=== PATIENT | female | born 1975 | race Asian ===

== ENCOUNTER 2017-03-13 17:50 | Emergency (ER) | payer BC ==
--- NOTE | ~2017-03-13 | EKG ---
PATIENT: TOAN KOCH UNIT #: [id number] Ventricular Rate: 90 BPM Atrial Rate: 90 BPM P-R Interval: 168 ms QRS Duration: 88 ms Q-T Interval: 390 ms QTC Calculation(Bezet): 477 ms P [place]: 57 degrees Calculated R [place]: -70 degrees Calculated T [place]: 53 degrees Diagnosis Line: Normal sinus rhythm Diagnosis Line: Left axis deviation Diagnosis Line: Low voltage QRS Diagnosis Line: Poor R wave progression questionable lead position Diagnosis Line: or body habitus Diagnosis Line: Abnormal ECG Diagnosis Line: No previous ECGs available Diagnosis Line: Confirmed by ISI MARTINES MD ([id number]) on Diagnosis Line: 03/13/2017 10:30:02 PM INTERPRETING MD: LISA
[2017-03-13 15:11] LABS: BASOPHIL% 0.2 % (0-2.5); EOSINOPHIL% 0.6 % (0.0-7.0); HEMATOCRIT 43.4 % (35.0-45.0); HEMOGLOBIN 14.3 gm/dL (12.0-16.0); LYMPHOCYTE# 2.2 X10e3 (1.0-3.5); LYMPHOCYTE% 25.3 % (17.0-45.0); MEAN CELL VOLUME 90.9 FL (83-96); MEAN CORPUSCULAR HGB CONC 33.1 g/dL (30-36); MEAN PLATELET VOLUME 8.6 FL (6.5-11.5); MONOCYTE# 0.8 X10e3 (0-1.0); MONOCYTE% 9.2 % (3.0-12.0); NEUTROPHIL# 5.6 X10e3 (1.5-7.1); NEUTROPHIL% 64.7 % (40-75); PLATELET COUNT 237 X10e3 (140-420); RED BLOOD COUNT 4.77 X10e (3.90-5.30); RED CELL DISTRIBUTION WIDTH 12.5 % (11.0-15.5); WHITE BLOOD COUNT 8.7 X10e3 (4.0-10.5)
[2017-03-13 15:15] LABS: DIFF IND NO
[2017-03-13 15:43] LABS: ALBUMIN SERUM 4.5 g/dL (3.5-5.0); BILIRUBIN, DIRECT 0.1 mg/dL (0.0-0.2); BILIRUBIN,INDIRECT 0.8 mg/dL (0.0-0.9); BILIRUBIN,TOTAL 0.9 mg/dL (0.2-2.0); CALCIUM SERUM 8.9 mg/dL (8.4-10.2); CREATININE SERUM 0.4 mg/dL (0.6-1.4); GLOM FILT RATE Estimated 127.6 mL/min (>60); POTASSIUM 3.6 mmol/L (3.5-5.1); PROTEIN TOTAL SERUM 7.8 g/dL (6.0-8.3)
[2017-03-13 16:44] LABS: URINE SOURCE CLEAN CATCH
[2017-03-13 16:51] LABS: URINE APPEARANCE CLEAR; URINE BILIRUBIN NEG (NEG); URINE BLOOD 1+ (NEG); URINE COLOR YELLOW; URINE GLUCOSE NEG (NEG); URINE KETONE NEG (NEG); URINE LEUKOCYTE ESTERASE 3+ (NEG); URINE NITRATE NEG (NEG); URINE PH 6.5 (5-8); URINE PROTEIN NEG (NEG); URINE SPECIFIC GRAVITY 1.006 (1.003-1.035); URINE UROBILINOGEN 0.2 MG/DL (NEG)
[2017-03-13 16:53] LABS: CULTURE INDICATED? YES; URINE BACTERIA AUWI 3+ (NEGATIVE); URINE SQUAMOUS EPITHELIAL CELL NONE SEEN /[HPF]; UWBCS1 AUWI 25-50 (0-5)
[~2017-03-13 17:50] MED LIST: KETOPROFEN PO; MEDROL DOSEPAK4 MG PO; MOBIC15 MG PO; PHENERGAN25 M1 PO; PHENERGAN25 MG PO; PLAQUENIL200 MG PO; PREDNISONE PO; PRILOSEC40 MG PO; TRAMADOL HCL50 M2 PO
== END 2017-03-13 18:00 | disposition left against medical advice (07) ==
LOC: CED 17:50
PROVIDERS: Emergency Medicine
DX: Z53.21 Procedure and treatment not carried out due to patient leaving prior to being seen by health care provider (principal)
CPT/HCPCS: 80048; 80076; 81003; 84703; 85025; 87086; 87088; 87186; 93005

== ENCOUNTER 2017-03-14 14:58 | Emergency (ER) | payer BC ==
--- NOTE | ~2017-03-14 | CR58 ---
[facility] A Service of [facility] & [facility] RADIOLOGY TEXT RESULTS PATIENT: TOAN KOCH LOCATION: [place] : 71 UNIT #: [id number] AGE: [address]: Kathrin Whatley APRN SEX: F ORDER DR: [id number] [facility] [address] [place], [place] [address] [id number] E MR#: [id number] Acc #: [id number] NAME: TOAN KOCH : 1975 SEX: F STUDY DATE/TIME: 03/14/2017 15:25 UNIT: [facility] ROOM: STUDY DESCRIPTION: CR Cervical Spine 2 or 3 Views Attending Physician: Kathrin Whatley A.P.R.N. Referring Physician: Anthony Lee M.D. Ordering Physician: Ed Fermin Harrison M.D. Primary Care Physician: Flynn Roberts M.D. MEDICAL IMAGING REPORT This report is preliminary unless electronic signature is present EXAM Cervical spine series. DATE OF EXAM 03/14/2017 HISTORY Pain. No known injury. REPORT AP, lateral and open mouth odontoid and submental vertex views of the cervical spine are presented. COMPARISON No prior studies for comparison. FINDINGS Straightening of normal cervical lordosis. No fracture or traumatic malalignment. Congenital fusion C3-C4. Overall, vertebral body heights are normal given the C3-C4 fusion. Moderate disc space narrowing C4-C5, C5-C6, C6-C7. Prominent anterior osteophyte formations at multiple levels with posterior osteophyte formations suggested C5-C6, C6-C7. Appearance on the lateral view suggests there may be some calcifications along the posterior longitudinal ligament at the C5 and C6 levels as well. Effect on spinal canal contents unclear on basis of this examination. This could best be further evaluated with MRI if the patient is a candidate or CT. The facet joint relationships appear normal given the C3-C4 fusion. C1-C2 relationship and odontoid process normal in appearance. Prevertebral soft tissues unremarkable. Visualized thoracic spine normal. Pulmonary parenchyma clear in visualized extent. [facility] A Service of [facility] & [facility] RADIOLOGY TEXT RESULTS PATIENT: TOAN KOCH LOCATION: [facility] : 71 UNIT #: [id number] AGE: [address]: Kathrin Whatley APRN SEX: F ORDER DR: Dictated by... Woody Randolph M.D. THIS IS AN ELECTRONICALLY VERIFIED REPORT Woody Randolph M.D. at 03/20/2017 11:00 AM HAILE/danish TD: 03/14/2017 18:50 JOB #: [id number] MEDICAL IMAGING REPORT Page 1 of 1 COPY
== END 2017-03-14 17:36 | disposition home or self-care (01) ==
LOC: CFTX 14:58
DX: M54.2 Cervicalgia (principal); N39.0 Urinary tract infection, site not specified; Z79.899 Other long term (current) drug therapy
CPT/HCPCS: 72040; 96372; 99283; J1885

== ENCOUNTER 2017-06-04 05:12 | Emergency (ER) | payer BC ==
[~2017-06-04] VITALS: Ht 149.9 cm; Wt 47.6 kg
[2017-06-04 06:43] LABS: BASOPHIL% 0.2 % (0-2.5); EOSINOPHIL% 0.1 % (0.0-7.0); HEMOGLOBIN 14.2 gm/dL (12.0-16.0); LYMPHOCYTE# 1.4 X10e3 (1.0-3.5); LYMPHOCYTE% 26.1 % (17.0-45.0); MEAN CELL VOLUME 89.1 FL (83-96); MEAN CORPUSCULAR HEMOGLOBIN 29.4 PG (28-34); MEAN CORPUSCULAR HGB CONC 33.1 g/dL (30-36); MEAN PLATELET VOLUME 9.4 FL (6.5-11.5); MONOCYTE# 0.6 X10e3 (0-1.0); MONOCYTE% 11.5 % (3.0-12.0); NEUTROPHIL# 3.4 X10e3 (1.5-7.1); NEUTROPHIL% 62.1 % (40-75); PLATELET COUNT 249 X10e3 (140-420); RED BLOOD COUNT 4.82 X10e (3.90-5.30); RED CELL DISTRIBUTION WIDTH 12.4 % (11.0-15.5); WHITE BLOOD COUNT 5.6 X10e3 (4.0-10.5)
[2017-06-04 06:44] LABS: DIFF IND NO
[2017-06-04 07:14] LABS: ALBUMIN SERUM 4.3 g/dL (3.5-5.0); BILIRUBIN, DIRECT 0.2 mg/dL (0.0-0.2); BILIRUBIN,INDIRECT 1.5 mg/dL (0.0-0.9); BILIRUBIN,TOTAL 1.7 mg/dL (0.2-2.0); CALCIUM SERUM 9.7 mg/dL (8.4-10.2); CREATININE SERUM 0.5 mg/dL (0.6-1.4); GLOM FILT RATE Estimated 118.6 mL/min (>60); POTASSIUM 3.6 mmol/L (3.5-5.1); PROTEIN TOTAL SERUM 7.5 g/dL (6.0-8.3)
== END 2017-06-04 09:05 | disposition home or self-care (01) ==
LOC: CED 05:12
DX: R10.13 Epigastric pain (principal); R11.2 Nausea with vomiting, unspecified; Z98.890 Other specified postprocedural states
CPT/HCPCS: 36415; 80048; 80076; 83690; 85025; 96361; 96374; 99284; J2405